=== PATIENT | female | born 1995 | race Caucasian/White ===

== ENCOUNTER → 2019-02-01 | Outpatient (CLI) | payer BC ==
--- NOTE | 2019-02-01 10:26 | KCIC ---
Left breast ultrasound: Reason for examination: Left breast lump. History of dog jumping up on patient with some bruising at the site recently. Left whole breast ultrasound including evaluation of all 4 quadrants and the retroareolar and axillary regions of the left breast was performed. In the area of clinical concern at the 11:00 position 8 cm from the nipple, there is a hyperechoic somewhat heterogeneous area of nodularity present measuring approximately 2 cm in greatest dimension. The appearance would be consistent with a hematoma. No other cystic or solid lesions are seen. No abnormal appearing lymph nodes are seen in the axilla. IMPRESSION: 2 cm hyperechoic somewhat heterogeneous nodule in the area of clinical concern. This probably represents a hematoma. Recommend reevaluation in 4-6 weeks for interval resolution of the lesion. BI-RADS Category 3: Probably Benign. "Our facility is accredited by the [employer]amm[employer]." This patient's information has been entered into a reminder system for the patient to be notified with the results of her examination and a target date for the next mammogram. Electronically signed by: Nadine Kapoor MD (02/01/2019 10:24 AM) [id number]
== END | disposition home or self-care (01) ==
LOC: KCIC US 09:53
PROVIDERS: ATTEND Nurse Practitioner Women's Health
DX: N63.21 Unspecified lump in the left breast, upper outer quadrant (principal)
CPT/HCPCS: 76641